=== PATIENT | male | born 1965 | race Hispanic/Latino ===

== ENCOUNTER 2021-02-20 09:00 | Outpatient (RCR) | payer OTHER | END 2021-03-09 | LOC: OT 09:00 | PROVIDERS: ATTEND Specialist | DX: S16.1XXD Strain of muscle, fascia and tendon at neck level, subsequent encounter (principal); M75.01 Adhesive capsulitis of right shoulder; G56.01 Carpal tunnel syndrome, right upper limb; M75.81 Other shoulder lesions, right shoulder ==

== ENCOUNTER 2021-04-07 09:00 | Outpatient (RCR) | payer OTHER | END 2021-04-08 | LOC: OT 09:00 | PROVIDERS: ATTEND Specialist | DX: S16.1XXD Strain of muscle, fascia and tendon at neck level, subsequent encounter (principal); M54.12 Radiculopathy, cervical region; M75.01 Adhesive capsulitis of right shoulder; M75.81 Other shoulder lesions, right shoulder ==

== ENCOUNTER 2021-04-10 09:00 | Outpatient (RCR) | payer OTHER | END 2021-05-09 | LOC: OT 09:00 | PROVIDERS: ATTEND Specialist | DX: M75.01 Adhesive capsulitis of right shoulder (principal) ==

== ENCOUNTER → 2022-01-28 | Day surgery (SDC) | payer OTHER ==
[~2022-01-28] MED LIST: ATORVASTATIN CA20 MG PO; FENTANYL CITRATE/PF 100MCG/2 ML INJ ONE; GLIMEPIRIDE2 MG PO; HYOSCYAMINE SULFATE 0.5 MG/ML INJ ONE; JARDIANCE10 MG PO; LIDOCAINE HCL 2% LOCAL INJ 5 ML SDV VIAL INJ ONE; LISINOPRIL2.5 MG PO; METFORMIN HCL850 MG PO; METOCLOPRAMIDE HCL 10 MG/2ML VIAL ONE; MIDAZOLAM HCL 2 MG/2 ML VIAL ONE; PROPOFOL IV EMULSION 10 MG/ML 20 ML VIAL ONE; TRULICITY0.75 MG/0. SC
[2022-01-28 10:10] VITALS: BP 115/83
== END | disposition home or self-care (01) ==
LOC: OR 07:27
PROVIDERS: ATTEND Internal Medicine Gastroenterology
DX: K25.9 Gastric ulcer, unspecified as acute or chronic, without hemorrhage or perforation (principal); D12.3 Benign neoplasm of transverse colon; K29.70 Gastritis, unspecified, without bleeding; K22.70 Barrett's esophagus without dysplasia; K20.90 Esophagitis, unspecified without bleeding; K57.30 Diverticulosis of large intestine without perforation or abscess without bleeding; K64.8 Other hemorrhoids; G47.33 Obstructive sleep apnea (adult) (pediatric); E11.9 Type 2 diabetes mellitus without complications; G25.81 Restless legs syndrome; E78.5 Hyperlipidemia, unspecified; I10 Essential (primary) hypertension; E66.9 Obesity, unspecified; Z01.810 Encounter for preprocedural cardiovascular examination; Z79.84 Long term (current) use of oral hypoglycemic drugs; Z79.899 Other long term (current) drug therapy; Z68.34 Body mass index [BMI] 34.0-34.9, adult
CPT/HCPCS: 36415; 43239; 45378; 45385; 82948; 93005; J1980; J2001; J2250; J2765; J3010